=== PATIENT | female | born 1975 | race Caucasian/White ===

== ENCOUNTER → 2024-05-13 | Outpatient (CLI) | payer BC ==
--- NOTE | 2024-05-19 17:15 | CT ---
EXAMINATION TYPE: CT brain wo con DATE OF EXAM: 05/13/2024 5:34 PM COMPARISON: None. CLINICAL INDICATION: Female, 49 years old with history of R42 DIZZINESS/GIDDYNESS [id number] MGRN W/O AUR A, Dizziness and MENSAH's. TECHNIQUE: Brain: Axial CT images of the brain were obtained with coronal and sagittal reformats created and rev iewed. Contrast used: None. Oral contrast used: None. CT DLP: 1031.0 mGycm, Automated exposure control for dose reduction was used. FINDINGS: Brain: Extra-axial spaces: No abnormal extra-axial fluid collections. Ventricular system: Within normal limits Cerebral parenchyma: No acute intraparenchymal hemorrhage or mass effect. The menjivar-white junction is well differentiated. Cerebellum: Unremarkable. Mass effect: No evidence of midline shift. Intracranial vasculature: unremarkable Soft tissues: Normal. Calvarium/osseous structures: No depressed skull fracture. Paranasal sinuses and mastoid air cells: Mild scattered paranasal sinus disease. Visualized orbits: Orbital contents are intact. IMPRESSION: No acute intracranial process. [facility], , 05/19/2024 5:13 PM
== END | disposition home or self-care (01) ==
LOC: RADCTMAIN 17:08
PROVIDERS: ATTEND Family Medicine
DX: R42 Dizziness and giddiness (principal); G43.001 Migraine without aura, not intractable, with status migrainosus
CPT/HCPCS: 70450

== ENCOUNTER → 2024-05-13 | Outpatient (CLI) | payer BC ==
--- NOTE | 2024-05-15 11:20 | MM ---
Reason for Exam: Screening (asymptomatic). Baseline mammogram. Patient History: Menarche at age 13. First Full-Term at age 22. Risk Values: Albertina 5 year model risk: 0.8%. NCI Lifetime model risk: 8.3%. Prior Study Comparison: Patient's first Mammogram. Tissue Density: The breasts are almost entirely fatty. Findings: Analyzed By CAD. Right breast: There is no suspicious group of microcalcifications or new suspicious mass. Left breast: There is no suspicious group of microcalcifications or new suspicious mass. Overall Assessment: Negative, BI-RAD 1 Management: Screening Mammogram of both breasts in [address] [facility] will attempt to contact patient to return for supplemental views and ultrasound if indicated. Patient should continue monthly self-breast exams. A clinical breast exam by your physician is recommended on an annual basis. This exam should not preclude additional follow-up of suspicious palpable abnormalities. Note on Albertina scores and lifetime risk: 1. A Albertina score greater than 3% is considered moderate risk. If this is the case, consider specialist referral to assess eligibility for a risk reducing agent. 2. If overall lifetime risk for the development of breast cancer is 20% or higher, the patient may qualify for future screening with alternating mammogram and breast MRI. [facility], , 05/15/2024 11:17 AM. Electronically signed and approved by: Alexx Tolliver DO
== END | disposition home or self-care (01) ==
LOC: RADMAMWWP 16:43
PROVIDERS: ATTEND Family Medicine
DX: Z12.31 Encounter for screening mammogram for malignant neoplasm of breast (principal); R92.313 Mammographic fatty tissue density, bilateral breasts
CPT/HCPCS: 77067

== ENCOUNTER 2024-05-19 15:27 | Inpatient (IN) | payer BC ==
[2024-05-19 15:35] LABS: Glucose,Whole Blood 125 mg/dL (70-110)
--- NOTE | 2024-05-19 15:39 | ED ---
Syncope HPI - General Chief Complaint: Syncope Stated Complaint: SEIZURES Time Seen by Provider: 05/19/24 15:37 Source: patient, family, RN notes reviewed, old records reviewed Mode of arrival: ambulatory Limitations: no limitations - History of Present Illness Initial Comments: This is a 49-year-old female with significant anxiety during history of present illness coming in with family members were concerned for her wellbeing, syncope versus seizure throughout the day today as well as been having undiagnosed headaches and syncopal events prior this past month has been unusual for this patient as she is normally healthy without complaint or issue and she has been having a more difficult month. No trauma no fevers no nausea no vomiting no diarrhea no other complaints MD Complaint: loss of consciousness, felt faint, collapsed, seizure -: hour(s) Prodromal Symptoms: headache, lightheaded -: second(s) Witnessed: yes - by bystander Injuries Sustained Associated with Event: None Current Symptoms: lightheaded History: seizure disorder, previous syncopal episode Context: at rest Treatments Prior to Arrival: none - Related Data Home Medications Medication Instructions Recorded Confirmed No Known Home Medications 05/19/24 05/19/24 Allergies Allergy/AdvReac Type Severity Reaction Status Date / Time No Known Allergies Allergy Verified 05/19/24 18:11 Review of Systems ROS Statement: Those systems with pertinent positive or pertinent negative responses have been documented in the HPI. ROS Other: All systems not noted in ROS Statement are negative. Past Medical History Past Medical History: No Reported History Past Surgical History: Section, Tubal Ligation Additional Past Surgical History / Comment(s): wisdom teeth Smoking Status: Never smoker Past Alcohol Use History: None Reported Past Drug Use History: None Reported General Exam Limitations: no limitations General appearance: alert, in no apparent distress Head exam: Present: atraumatic, normocephalic, normal inspection Eye exam: Present: normal appearance, PERRL, EOMI. Absent: scleral icterus, co njunctival injection, periorbital swelling ENT exam: Present: normal exam, mucous membranes moist Neck exam: Present: normal inspection. Absent: tenderness, meningismus, lymphadenopathy Respiratory exam: Present: normal lung sounds bilaterally. Absent: respiratory distress, wheezes, rales, rhonchi, stridor Cardiovascular Exam: Present: regular rate, normal rhythm, normal heart sounds. Absent: systolic murmur, diastolic murmur, rubs, gallop, clicks GI/Abdominal exam: Present: soft, normal bowel sounds. Absent: distended, tenderness, guarding, rebound, rigid Extremities exam: Present: normal inspection, full ROM, normal capillary refill. Absent: tenderness, pedal edema, joint swelling, calf tenderness Back exam: Present: normal inspection Neurological exam: Present: alert, oriented X3, CN II-XII intact Psychiatric exam: Present: normal affect, normal mood Skin exam: Present: warm, dry, intact, normal color. Absent: rash Course Vital Signs 05/19/24 05/19/24 05/19/24 15:29 16:21 18:05 Temperature 97.4 F L 98.4 F Pulse Rate 82 85 92 Respiratory 20 16 22 Rate Blood Pressure 140/83 131/87 135/91 O2 Sat by Pulse 96 96 99 Oximetry 05/19/24 20:43 Temperature Pulse Rate 87 Respiratory 18 Rate Blood Pressure 128/84 O2 Sat by Pulse 98 Oximetry - Reevaluation(s) Reevaluation #1: 05/19/24 16:24 Medical records reviewed Reevaluation #2: 05/19/24 18:14 Patient has recurrent syncopal event here in the ER while ambulating to the bathroom Reevaluation #3: 05/19/24 18:14 Patient informed of results questions answered Reevaluation #4: Was pt. sent in by a medical professional or institution (, PA, STRATEGIC CONSULTANT, urgent care, hospital, or fdc...) When possible be specific @ -no Did you speak to anyone other than the patient for history (EMS, parent, family, police, friend...)? What history was obtained from this source @ -no Did you review nursing and triage notes (agree or disagree)? Why? @ -agree Are old charts reviewed (outside hosp., previous admission, EMS record, old EKG, old radiological studies, urgent care reports/EKG's, fdc records)? Report findings @ -yes Differential Diagnosis (chest pain, altered mental status, abdominal pain women, abdominal pain men, vaginal bleeding, weakness, fever, dyspnea, syncope, headache, dizziness, GI bleed, back pain, seizure, CVA, palpatations, mental health, musculoskeletal)? @ -prior EKG interpreted by me (3pts min.). @ -yes X-rays interpreted by me (1pt min.). @ -no CT interpreted by me (1pt min.). @ -yes negative for acute disease U/S interpreted by me (1pt. min.). @ -no What testing was considered but not performed or refused? (CT, X-rays, U/S, labs)? Why? @ -none What meds were considered but not given or refused? Why? @ -none Did you discuss the management of the patient with other professionals (professionals i.e. DrNaa, PA, STRATEGIC CONSULTANT, lab, RT, psych nurse, drug abuse social worker, active directory systems administrator, teacher, signals officer, case investigator)? Give summary @ -no Was smoking cessation discussed for >3mins.? @ -no Was critical care preformed (if so, how long)? @ -no Were there social determinants of health that impacted care today? How? (Homelessness, low income, unemployed, alcoholism, drug addiction, transportation, low edu. Level, literacy, decrease access to med. care, long term, rehab)? @ -none Was there de-escalation of care discussed even if they declined (Discuss DNR or withdrawal of care, Hospice)? DNR status @ -no What co-morbidities impacted this encounter? (DM, HTN, Smoking, COPD, CAD, Cancer, CVA, ARF, Chemo, Hep., AIDS, mental health diagnosis, sleep apnea, morbid obesity)? @ -none Was patient admitted / discharged? Hospital course, mention meds given and route, prescriptions, significant lab abnormalities, going to OR and other pertinent info. @ - 49 female for syncope versus seizure. Patient believes she is having seizures but had multiple syncopal events at home and was well as in the past month. Patient has syncopal event here in the ER and will admit for further evaluation Discharge Undiagnosed new problem with uncertain prognosis? @ -no Drug Therapy requiring intensive monitoring for toxicity (Heparin, Nitro, Insulin, Cardizem)? @ -no Were any procedures done? @ -no Diagnosis/symptom? @ -Syncope versus seizure Acute, or Chronic, or Acute on Chronic? @ -Acute Uncomplicated (without systemic symptoms) or Complicated (systemic symptoms)? @ -Complicated Side effects of treatment? @ -no Exacerbation, Progression, or Severe Exacerbation? @ -exacerbation Poses a threat to life or bodily function? How? (Chest pain, USA, DE, pneumonia, PE, COPD, DKA, ARF, appy, cholecystitis, CVA, Diverticulitis, Homicidal, Suicidal, threat to staff... and all critical care pts) @ -yes syncope versus seizure Reevaluation #5: Differential Seizure: Recurrent seizure disorder, febrile seizure, alcohol withdrawal, stimulants, meningitis, encephalitis, intercranial hemorrhage, intracranial tumor, stroke, eclampsia, thyrotoxicosis, hypocalcemia, hyponatremia, hypernatremia, hypomagnesemia, psychogenic, this is not meant to be an all-inclusive list. Differential Syncope: Valvular disease, hypertrophic cardiomyopathy, pulmonary embolism, tamponade, tachycardia, bradycardia, DE, hypovolemia, hemorrhage, dissection, anemia, intracranial hemorrhage, seizure, hypoglycemia, carbon monoxide poisoning, this is not meant to be an all-inclusive list. Differential Headache: Migraine, tension, cluster, carbon monoxide, central venous thrombosis, pension karma temporal arteritis, acute closure glaucoma, intercranial hemorrhage, mastoiditis, sinusitis, head injury, this is not meant to be an all-inclusive list. - Consultations Consultation #1: Was found to admit this patient EKG Findings - EKG Comments: EKG Findings:: EKG is A-fib 76 QRS 143 QTc 449 - EKG Results: EKG: interpreted by PHONG Medical Decision Making - Medical Decision Making 49 female for syncope versus seizure. Patient believes she is having seizures but had multiple syncopal events at home and was well as in the past month. Patient has syncopal event here in the ER and will admit for further evaluation - Lab Data Result diagrams: 05/20/24 09:06 05/21/24 12:53 Lab Results 05/19/24 05/19/24 05/19/24 Range/Units 15:34 15:48 15:48 WBC 8.4 (3.8-10.6) k/uL RBC 4.56 (3.80-5.40) m/uL Hgb 14.1 (11.4-16.0) gm/dL Hct 42.7 (34.0-46.0) % MCV 93.7 (80.0-100.0) fL MCH 31.0 (25.0-35.0) pg MCHC 33.1 (31.0-37.0) g/dL RDW 12.3 (11.5-15.5) % Plt Count 254 (150-450) k/uL MPV 8.8 Neutrophils % 61 % Lymphocytes % 29 % Monocytes % 5 % Eosinophils % 2 % Basophils % 0 % Neutrophils # 5.1 (1.3-7.7) k/uL Lymphocytes # 2.5 (1.0-4.8) k/uL Monocytes # 0.5 (0-1.0) k/uL Eosinophils # 0.2 (0-0.7) k/uL Basophils # 0.0 (0-0.2) k/uL PT 10.0 (10.0-12.5) sec INR 0.9 (<1.2) APTT 24.9 (22.0-30.0) sec D-Dimer 0.21 (<0.60) mg/L FEU Sodium (137-145) mmol/L Potassium (3.5-5.1) mmol/L Chloride (98-107) mmol/L Carbon Dioxide (22-30) mmol/L Anion Gap mmol/L BUN (7-17) mg/dL Creatinine (0.52-1.04) mg/dL Est GFR (CKD-EPI)AfAm (>60 ml/min/1.73 sqM) Est GFR (CKD-EPI)NonAf (>60 ml/min/1.73 sqM) Glucose (74-99) mg/dL POC Glucose (mg/dL) 125 H (70-110) mg/dL POC Glu Assistant Chief Train Dispatcher ID Mack Juan Calcium (8.4-10.2) mg/dL Magnesium (1.6-2.3) mg/dL Total Bilirubin (0.2-1.3) mg/dL AST (14-36) U/L ALT (4-34) U/L Alkaline Phosphatase (38-126) U/L Troponin I (0.000-0.034) ng/mL NT-Pro-B Natriuret Pep pg/mL Total Protein (6.3-8.2) g/dL Albumin (3.5-5.0) g/dL TSH (0.465-4.680) mIU/L Cortisol (3.1-22.4) UG/DL Urine Color Urine Appearance (Clear) Urine pH (5.0-8.0) Ur Specific [place] (1.001-1.035) Urine Protein (Negative) Urine Glucose (UA) (Negative) Urine Ketones (Negative) Urine Blood (Negative) Urine Nitrite (Negative) Urine Bilirubin (Negative) Urine Urobilinogen (<2.0) mg/dL Ur Leukocyte Esterase (Negative) Urine RBC (0-5) /hpf Urine WBC (0-5) /hpf Ur Squamous Epith Cells (0-4) /hpf Salicylates mg/dL Urine Opiates Screen (NotDetected) Ur Oxycodone Screen (NotDetected) Urine Methadone Screen (NotDetected) Acetaminophen ug/mL Ur Barbiturates Screen (NotDetected) U Tricyclic Antidepress (NotDetected) Ur Phencyclidine Scrn (NotDetected) Ur Amphetamines Screen (NotDetected) U Methamphetamines Scrn (NotDetected) U Benzodiazepines Scrn (NotDetected) Urine Cocaine Screen (NotDetected) U Marijuana (THC) Screen (NotDetected) 05/19/24 05/19/24 05/19/24 Range/Units 15:48 15:48 15:48 WBC (3.8-10.6) k/uL RBC (3.80-5.40) m/uL Hgb (11.4-16.0) gm/dL Hct (34.0-46.0) % MCV (80.0-100.0) fL MCH (25.0-35.0) pg MCHC (31.0-37.0) g/dL RDW (11.5-15.5) % Plt Count (150-450) k/uL MPV Neutrophils % % Lymphocytes % % Monocytes % % Eosinophils % % Basophils % % Neutrophils # (1.3-7.7) k/uL Lymphocytes # (1.0-4.8) k/uL Monocytes # (0-1.0) k/uL Eosinophils # (0-0.7) k/uL Basophils # (0-0.2) k/uL PT (10.0-12.5) sec INR (<1.2) APTT (22.0-30.0) sec D-Dimer (<0.60) mg/L FEU Sodium 137 (137-145) mmol/L Potassium 4.5 (3.5-5.1) mmol/L Chloride 104 (98-107) mmol/L Carbon Dioxide 23 (22-30) mmol/L Anion Gap 10 mmol/L BUN 17 (7-17) mg/dL Creatinine 0.72 (0.52-1.04) mg/dL Est GFR (CKD-EPI)AfAm >90 (>60 ml/min/1.73 sqM) Est GFR (CKD-EPI)NonAf >90 (>60 ml/min/1.73 sqM) Glucose 139 H (74-99) mg/dL POC Glucose (mg/dL) (70-110) mg/dL POC Glu Assistant Chief Train Dispatcher ID Calcium 9.9 (8.4-10.2) mg/dL Magnesium 1.9 (1.6-2.3) mg/dL Total Bilirubin 0.9 (0.2-1.3) mg/dL AST 27 (14-36) U/L ALT 20 (4-34) U/L Alkaline Phosphatase 60 (38-126) U/L Troponin I <0.012 (0.000-0.034) ng/mL NT-Pro-B Natriuret Pep 56 pg/mL Total Protein 8.0 (6.3-8.2) g/dL Albumin 4.6 (3.5-5.0) g/dL TSH 1.990 (0.465-4.680) mIU/L Cortisol 29.4 H (3.1-22.4) UG/DL Urine Color Urine Appearance (Clear) Urine pH (5.0-8.0) Ur Specific [place] (1.001-1.035) Urine Protein (Negative) Urine Glucose (UA) (Negative) Urine Ketones (Negative) Urine Blood (Negative) Urine Nitrite (Negative) Urine Bilirubin (Negative) Urine Urobilinogen (<2.0) mg/dL Ur Leukocyte Esterase (Negative) Urine RBC (0-5) /hpf Urine WBC (0-5) /hpf Ur Squamous Epith Cells (0-4) /hpf Salicylates <1.0 mg/dL Urine Opiates Screen (NotDetected) Ur Oxycodone Screen (NotDetected) Urine Methadone Screen (NotDetected) Acetaminophen <10.0 ug/mL Ur Barbiturates Screen (NotDetected) U Tricyclic Antidepress (NotDetected) Ur Phencyclidine Scrn (NotDetected) Ur Amphetamines Screen (NotDetected) U Methamphetamines Scrn (NotDetected) U Benzodiazepines Scrn (NotDetected) Urine Cocaine Screen (NotDetected) U Marijuana (THC) Screen (NotDetected) 05/19/24 Range/Units 16:28 WBC (3.8-10.6) k/uL RBC (3.80-5.40) m/uL Hgb (11.4-16.0) gm/dL Hct (34.0-46.0) % MCV (80.0-100.0) fL MCH (25.0-35.0) pg MCHC (31.0-37.0) g/dL RDW (11.5-15.5) % Plt Count (150-450) k/uL MPV Neutrophils % % Lymphocytes % % Monocytes % % Eosinophils % % Basophils % % Neutrophils # (1.3-7.7) k/uL Lymphocytes # (1.0-4.8) k/uL Monocytes # (0-1.0) k/uL Eosinophils # (0-0.7) k/uL Basophils # (0-0.2) k/uL PT (10.0-12.5) sec INR (<1.2) APTT (22.0-30.0) sec D-Dimer (<0.60) mg/L FEU Sodium (137-145) mmol/L Potassium (3.5-5.1) mmol/L Chloride (98-107) mmol/L Carbon Dioxide (22-30) mmol/L Anion Gap mmol/L BUN (7-17) mg/dL Creatinine (0.52-1.04) mg/dL Est GFR (CKD-EPI)AfAm (>60 ml/min/1.73 sqM) Est GFR (CKD-EPI)NonAf (>60 ml/min/1.73 sqM) Glucose (74-99) mg/dL POC Glucose (mg/dL) (70-110) mg/dL POC Glu Assistant Chief Train Dispatcher ID Calcium (8.4-10.2) mg/dL Magnesium (1.6-2.3) mg/dL Total Bilirubin (0.2-1.3) mg/dL AST (14-36) U/L ALT (4-34) U/L Alkaline Phosphatase (38-126) U/L Troponin I (0.000-0.034) ng/mL NT-Pro-B Natriuret Pep pg/mL Total Protein (6.3-8.2) g/dL Albumin (3.5-5.0) g/dL TSH (0.465-4.680) mIU/L Cortisol (3.1-22.4) UG/DL Urine Color Colorless Urine Appearance Clear (Clear) Urine pH 7.0 (5.0-8.0) Ur Specific [place] 1.006 (1.001-1.035) Urine Protein Negative (Negative) Urine Glucose (UA) Negative (Negative) Urine Ketones Negative (Negative) Urine Blood Negative (Negative) Urine Nitrite Negative (Negative) Urine Bilirubin Negative (Negative) Urine Urobilinogen <2.0 (<2.0) mg/dL Ur Leukocyte Esterase Moderate H (Negative) Urine RBC 2 (0-5) /hpf Urine WBC 14 H (0-5) /hpf Ur Squamous Epith Cells 3 (0-4) /hpf Salicylates mg/dL Urine Opiates Screen Not Detected (NotDetected) Ur Oxycodone Screen Not Detected (NotDetected) Urine Methadone Screen Not Detected (NotDetected) Acetaminophen ug/mL Ur Barbiturates Screen Not Detected (NotDetected) U Tricyclic Antidepress Not Detected (NotDetected) Ur Phencyclidine Scrn Not Detected (NotDetected) Ur Amphetamines Screen Not Detected (NotDetected) U Methamphetamines Scrn Not Detected (NotDetected) U Benzodiazepines Scrn Not Detected (NotDetected) Urine Cocaine Screen Not Detected (NotDetected) U Marijuana (THC) Screen Not Detected (NotDetected) - EKG Data -: EKG Interpreted by Me - Radiology Data Radiology results: report reviewed (CT brain CT canal negative for acute disease), image reviewed Disposition Clinical Impression: Fainting spell, Syncope, Seizure, Headache Disposition: ADMITTED IP TO THIS [facility] Condition: Stable Is patient prescribed a controlled substance at d/c from ED?: No Time of Disposition: 18:00
[2024-05-19] MEDS: SODIUM CHLORIDE 0.9% 1,000 ML IV STA (15:55)
[2024-05-19 16:04] LABS: Basophils % (A) 0 %; Eosinophils # (A) 0.2 k/uL (0-0.7); Eosinophils % (A) 2 %; HCT 42.7 % (34.0-46.0); HGB 14.1 gm/dL (11.4-16.0); Lymphocytes # (A) 2.5 k/uL (1.0-4.8); Lymphocytes % (A) 29 %; MCHC 33.1 g/dL (31.0-37.0); MCV 93.7 fL (80.0-100.0); Mean Platelet Volume 8.8; Monocytes # (A) 0.5 k/uL (0-1.0); Monocytes % (A) 5 %; Neutrophils # (A) 5.1 k/uL (1.3-7.7); Neutrophils % (A) 61 %; Platelet Count 254 k/uL (150-450); RBC 4.56 m/uL (3.80-5.40); RDW 12.3 % (11.5-15.5); WBC 8.4 k/uL (3.8-10.6)
[2024-05-19 16:15] LABS: ALT 20 U/L (4-34); Acetaminophen <10.0 ug/mL; African American GFR (CKD) >90 (>60 ml/min/1.73 sqM); Albumin 4.6 g/dL (3.5-5.0); Anion Gap 10 mmol/L; Blood Urea Nitrogen 17 mg/dL (7-17); Calcium 9.9 mg/dL (8.4-10.2); Carbon Dioxide 23 mmol/L (22-30); Chloride 104 mmol/L (98-107); Glucose 139 mg/dL (74-99); Non-African American GFR(CKD) >90 (>60 ml/min/1.73 sqM); Salicylate <1.0 mg/dL; Sodium 137 mmol/L (137-145); Total Bilirubin 0.9 mg/dL (0.2-1.3)
[2024-05-19 16:16] LABS: AST 27 U/L (14-36); Alkaline Phosphatase 60 U/L (38-126); Magnesium 1.9 mg/dL (1.6-2.3); Potassium 4.5 mmol/L (3.5-5.1)
[2024-05-19 16:20] LABS: INR 0.9 (<1.2); Partial Thromboplastin Time 24.9 sec (22.0-30.0)
--- NOTE | 2024-05-19 16:51 | CT ---
EXAMINATION TYPE: CT brain wo con DATE OF EXAM: 05/19/2024 4:44 PM COMPARISON: Previous CT study 05/13/2024. CLINICAL INDICATION: Female, 49 years old with history of syncope, Pt c/o seizures. States head tremb ling, heat in ear, and head shaking. Remembers episode happening. Denies fall/injury. States she was bending down to get water from fridge when it happened. States it starts with inner ear heating up an d heart palpitations which she reports is happening in triage. States she has passed out before from this. TECHNIQUE: Brain: Axial CT images of the brain were obtained with coronal and sagittal reformats created and rev iewed. Contrast used: None. Oral contrast used: None. CT DLP: Combined DLP of 1719.8 mGycm, Automated exposure control for dose reduction was used. FINDINGS: Brain: Extra-axial spaces: No abnormal extra-axial fluid collections. Ventricular system: Within normal limits Cerebral parenchyma: No acute intraparenchymal hemorrhage or mass effect. The menjivar-white junction is well differentiated. Cerebellum: Unremarkable. Mass effect: No evidence of midline shift. Intracranial vasculature: unremarkable Soft tissues: Normal. Calvarium/osseous structures: No depressed skull fracture. Paranasal sinuses and mastoid air cells: Mild scattered paranasal sinus disease. Visualized orbits: Orbital contents are intact. IMPRESSION: No acute intracranial process. [facility], , 05/19/2024 4:49 PM
[2024-05-19 17:00] LABS: Appearance,Urine Clear (Clear); Bilirubin,Urine Negative (Negative); Blood,Urine Negative (Negative); Color,Urine Colorless; Glucose,Urine (UA) Negative (Negative); Ketones,Urine Negative (Negative); Leukocyte Esterase,Urine Moderate (Negative); Nitrite,Urine Negative (Negative); Protein,Urine Negative (Negative); RBC,Urine 2 /hpf (0-5); Specific Gravity,Urine 1.006 (1.001-1.035); Squamous Epithelial Cell,Urine 3 /hpf (0-4); Urobilinogen,Urine <2.0 mg/dL (<2.0); WBC,Urine 14 /hpf (0-5)
[2024-05-19 17:01] LABS: Amphetamine Screen,Urine Not Detected (NotDetected); Barbiturate Screen,Urine Not Detected (NotDetected); Benzodiazepines Screen,Urine Not Detected (NotDetected); Cocaine Screen,Urine Not Detected (NotDetected); Methadone Screen, Urine Not Detected (NotDetected); Opiate Screen,Urine Not Detected (NotDetected); Oxycodone Screen, Urine Not Detected (NotDetected); Phencyclidine Screen,Urine Not Detected (NotDetected); Tricyclic Antidepressant,Urine Not Detected (NotDetected); Urn Cannabinoid Scrn Not Detected (NotDetected)
--- NOTE | 2024-05-19 17:13 | CT ---
EXAMINATION TYPE: CT angio head neck DATE OF EXAM: 05/19/2024 5:02 PM COMPARISON: Previous CT study 05/13/2024. CLINICAL INDICATION: Female, 49 years old with history of ziegler; PHH, Pt c/o seizures. States head tremb ling, heat in ear, and head shaking. Remembers episode happening. Denies fall/injury. States she was bending down to get water from fridge when it happened. States it starts with inner ear heating up an d heart palpitations which she reports is happening in triage. States she has passed out before from this. TECHNIQUE: Axially acquired helical CT angiogram of the head and neck was obtained with contrast. Axi al images are supplemented with 3D reconstructions and MIP images which were post-processed at an in dependent workstation. NASCET criteria used. Contrast used:65 ml mL of Isovue 370 with IV Contrast, Oral contrast used: None. CT DLP: Combined DLP of 1719.8 mGycm, Automated exposure control for dose reduction was used. FINDINGS: CTA HEAD: No evidence of acute intracranial hemorrhage, mass effect, or midline shift. The ventricles, sulci, a nd cisterns are unremarkable. Vertebral arteries: The vertebral arteries are patent. Vertebral artery dominance: Codominant Basilar artery: The basilar artery is intact. The basilar artery bifurcation is normal. Internal Carotid arteries: The cervical, petrous, cavernous and supraclinoid segments are normal. STACIA: Patent with no evidence of aneurysm. ACOM: Present without evidence of aneurysm. MCA: Patent with no evidence of aneurysm. CREWMAN MAIN BATTLE TANK: Patent with no evidence of aneurysm. PCOM: Hypoplastic bilaterally. Dural sinuses: Patent. CTA NECK: Right Carotid System: The common carotid artery and external carotid artery are patent. The carotid bifurcation demonstrate s no evidence of hemodynamically significant stenosis. The remaining portions of the internal carotid artery demonstrate normal size without significant narrowing. Left Carotid System: The common carotid artery and external carotid artery are patent. The carotid bifurcation demonstrate s no evidence of hemodynamically significant stenosis. The remaining portions of the internal carotid artery demonstrate normal size without significant narrowing. Vertebral arteries are patent without evidence hemodynamically significant stenosis. There is a three-vessel aortic arch. The origins of the great vessels are patent. No evidence of hemo dynamically significant stenosis. Upper thorax: IMPRESSION: 1. No evidence of dissection of the cervical internal carotid arteries or vertebral arteries. 2. No any evidence of significant stenosis at the carotid bifurcations. 3. No evidence of intracranial high-grade stenosis or intracranial aneurysm. [facility], , 05/19/2024 5:10 PM
[2024-05-19] MEDS ORDERED: ONDANSETRON 4 MG/2 ML VIAL IVP PRN (18:12)
[2024-05-19] MEDS ORDERED: MORPHINE SULFATE 4 MG/ML SYRINGE IV PRN (18:12)
[2024-05-19] MEDS ORDERED: NALOXONE 0.4 MG/ML 1 ML VIAL IV PRN (18:12)
[2024-05-19] MEDS: SODIUM CHLORIDE 0.9% 1,000 ML IV SCH (18:18)
[2024-05-19 21:36] LABS: NT-Pro-B-Type Natriuretic Pept 56 pg/mL
--- NOTE | 2024-05-19 22:18 | P.HPIM ---
History of Present Illness H&P Date: 05/19/24 Chief Complaint: syncope History of present illness; 49-year-old female with no significant PMH presents emergency department due to family members being concerned for her wellbeing. She states that dating back to January he had noted having episodes where she feels as though she passes out. She states these episodes last about 1 minute, the begin with her feeling warmth in and around her right ear which then extends to her left ear and sometimes throughout her torso. She notes that she has passed out on multiple occasions as a result of these episodes. She states that following her episodes of passing out she feels weakness that sometimes last the duration of the day. She states that over the past week this has become worse, and more frequent, stating that today she has had 3+ episodes thus far, and another episode in the ED. She notes that there is some association between when she gets up from a seated position, when she moves her head in certain directions (in particular towards the right), has her chin pulled down to her chest. While these do not always reproduce these episodes, she has noticed an association between them. She endorses some dizziness preceding these episodes and some palpitations, however denies any nausea or vomiting. Her , at the bedside, provides additional detail, noting that they have noticed her having episodes of bradycardia (HR in the 40s) and her heart rate during/right after these episodes being upwards of 170. Additionally, she notes that her period stopped occurring in January, and she has not had one since. At this time she notes that having increased anxiety secondary to these episodes, however has no acute complaints. Imaging: -CT brain showed no acute intracranial process -CT angiography of the head and neck showed no evidence of dissection of the cervical internal carotid arteries or vertebral arteries; no evidence of significant stenosis at the carotid bifurcation; no evidence of intracranial high-grade stenosis or intracranial aneurysm -EKG done in the ER showed atrial fibrillation with a heart rate of 76; QTc 449 Vitals: -Blood pressure 135/91, heart rate 92, respiratory rate 22, SpO2 99% on room air -Orthostatic pressures pending Patient admitted to internal medicine service REVIEW OF SYSTEMS: CONSTITUTIONAL: No fever, no malaise, no fatigue. HEENT: No recent visual problems or hearing problems. Denied any sore throat. CARDIOVASCULAR: No chest pain, orthopnea, PND, no palpitations, no syncope. PULMONARY: No shortness of breath, no cough, no hemoptysis. GASTROINTESTINAL: No diarrhea, no nausea, no vomiting, no abdominal pain. NEUROLOGICAL: No headaches, no weakness, no numbness. HEMATOLOGICAL: Denies any bleeding or petechiae. GENITOURINARY: Denies any burning micturition, frequency, or urgency. MUSCULOSKELETAL/RHEUMATOLOGICAL: Denies any joint pain, swelling, or any muscle pain. ENDOCRINE: Denies any polyuria or polydipsia. The rest of the 14-point review of systems is negative. PHYSICAL EXAMINATION: GENERAL: The patient is alert and oriented x3, not in any acute distress. Well developed, well nourished. HEENT: No scleral icterus. No conjunctival pallor. Normocephalic, atraumatic. CARDIOVASCULAR: S1 and S2 present. No murmurs, rubs, or gallops. PULMONARY: Chest is clear to auscultation, no wheezing or crackles. ABDOMEN: Soft, nontender, nondistended, normoactive bowel sounds. No palpable organomegaly. MUSCULOSKELETAL: No joint swelling or deformity. EXTREMITIES: No cyanosis, clubbing, or pedal edema. NEUROLOGICAL: Gross neurological examination did not reveal any focal deficits. 5/5 strength in bilateral upper and lower extremities. CN II-XII grossly intact SKIN: No rashes. Assessment and plan 41-year-old female without significant past medical history presents emergency room for further evaluation following a month-long history of apparent syncopal, or seizure-like, episodes. Discussed with the ED and patient is admitted to the internal medicine service for further evaluation. #Syncope vs seizure -CT brain showed no acute intracranial process -CT angiography of the head and neck showed no evidence of dissection of the cervical internal carotid arteries or vertebral arteries; no evidence of significant stenosis at the carotid bifurcation; no evidence of intracranial high-grade stenosis or intracranial aneurysm -EKG done in the ER showed atrial fibrillation with a heart rate of 76; QTc 449 -Second EKG currently pending -Patient maintained on normal saline 75 cc/h -Cardiology consulted for possible syncopal episode -Neurology consulted for possible seizure-like activity -Orthostatic blood pressures ordered -Echocardiogram pending -Cardiac monitoring -Supplemental oxygen as needed -EEG pending for tomorrow morning (05/20) -Trend troponins; <0.012 -> <0.012 -proBNP pending -TSH wnl 1.9 -Cortisol level pending -Urinalysis noncontributory; urine toxicology noncontributory GI prohylaxis: Not indicated DVT prophylaxis: [place] Risk Score: 1 point (low risk for VTE, prophylaxis not indicated), mechanical DVT PPX with SCDs Dictation was produced using [employer] dictation software. please excuse any grammatical, word or spelling errors. Past Medical History Past Medical History: No Reported History Past Surgical History: Section, Tubal Ligation Additional Past Surgical History / Comment(s): wisdom teeth Smoking Status: Never smoker Past Alcohol Use History: None Reported Past Drug Use History: None Reported Medications and Allergies Home Medications Medication Instructions Recorded Confirmed Type No Known Home Medications 05/19/24 05/19/24 History Allergies Allergy/AdvReac Type Severity Reaction Status Date / Time No Known Allergies Allergy Verified 05/19/24 18:11 Physical Exam Vitals: Vital Signs Temp Pulse Resp BP Pulse Ox 05/19/24 20:43 87 18 128/84 98 05/19/24 18:05 98.4 F 92 22 135/91 99 05/19/24 16:21 85 16 131/87 96 05/19/24 15:29 97.4 F L 82 20 140/83 96 Intake and Output 05/19/24 05/19/24 05/19/24 06:59 14:59 22:59 Other: Weight 90.718 kg Results CBC & Chem 7: 05/19/24 15:48 05/19/24 15:48 Labs: Abnormal Lab Results - Last 24 Hours (Table) 05/19/24 05/19/24 05/19/24 Range/Units 15:34 15:48 16:28 Glucose 139 H (74-99) mg/dL POC Glucose (mg/dL) 125 H (70-110) mg/dL Ur Leukocyte Esterase Moderate H (Negative) Urine WBC 14 H (0-5) /hpf Assessment and Plan Assessment: I have seen and evaluated the patient today. I Discussed the case with the res ident and agree with the resident's findings I edited the assessment and plan as necessary as documented in the resident's note.
--- NOTE | 2024-05-20 08:56 | P.CNNES ---
History of Present Illness Consult date: 05/20/24 Reason for Consult: Syncope vs. seizure disorder Chief complaint: "I have been passing out and feeling dizzy" History of Present Illness: Ms. Matt Bennett is a 49-year-old right-handed female with past medical history significant only for syncopal events versus seizures. She was admitted to [facility] on May 19 complaining of several episodes of lightheadedness as well as some loss of consciousness. She does not think she is unconscious for a long time, and denies tongue biting or bowel bladder incontinence with these episodes. She received an electrocardiogram in the emergency room showing atrial fibrillation with rate of 76 bpm. However she does note that symptoms tend to occur when she is arising from bending over. She also notes episodes which may occur when she turns her head to the right, but denies episodes occurring when she raises her arms above her head. She did undergo a CT scan of the brain as well as CT angiogram which were both negative. She was tachycardic in the emergency room to 170 and notes that she has been diagnosed with some low blood sugars with these episodes in the past but denies diabetes. Neurology was consulted for further management recommendations, and cardiology has been consulted as well. Review of Systems hot "flashes," no distict heat/cold intolerance. Eyes: bilateral blurred vision (during episodes) Ears, nose, mouth and throat: Reports as per HPI Cardiovascular: Reports as per HPI, Reports palpitations Respiratory: Reports as per HPI Gastrointestinal: Reports as per HPI Genitourinary: Reports as per HPI Menstruation: Reports postmenopausal Musculoskeletal: Reports as per HPI Integumentary: Reports as per HPI Neurological: Reports as per HPI Endocrine: Reports flushing Hematologic/Lymphatic: Reports as per HPI Allergic/Immunologic: Reports as per HPI Past Medical History Past Medical History: No Reported History (hx. only of multiple syncopal episodes vs. seizures.) History of Any Multi-Drug Resistant Organisms: None Reported Past Surgical History: Section, Tubal Ligation Additional Past Surgical History / Comment(s): wisdom teeth Past Anesthesia/Blood Transfusion Reactions: No Reported Reaction Smoking Status: Never smoker Past Alcohol Use History: None Reported Past Drug Use History: None Reported Medications and Allergies Home Medications Medication Instructions Recorded Confirmed Type No Known Home Medications 05/19/24 05/19/24 History Allergies Allergy/AdvReac Type Severity Reaction Status Date / Time No Known Allergies Allergy Verified 05/19/24 18:11 Physical Examination - Vital Signs Vital Signs: Vital Signs Temp Pulse Pulse Pulse Resp BP BP 05/20/24 07:00 98.2 F 72 16 05/20/24 02:00 97.7 F 75 17 107/73 05/19/24 20:43 87 18 128/84 05/19/24 18:05 98.4 F 92 22 135/91 05/19/24 16:21 85 16 131/87 05/19/24 15:29 97.4 F L 82 20 140/83 BP Pulse Ox 05/20/24 07:00 109/74 98 05/20/24 02:00 97 05/19/24 20:43 98 05/19/24 18:05 99 05/19/24 16:21 96 05/19/24 15:29 96 Intake and Output 05/19/24 05/20/24 05/20/24 22:59 06:59 14:59 Other: # Voids 1 2 Weight 90.718 kg - Constitutional General appearance: average body habitus - EENT EENT: PERRL - Respiratory Respiratory: chest non-tender, lungs clear - Cardiovascular Cardiovascular: regular rate, no murmurs Extremities: no peripheral edema bilaterally - Gastrointestinal Gastrointestinal: normoactive bowel sounds, non-tender - Integumentary Integumentary: normal - Neurologic Cranial nerve examination: PERRL, EOMI, V1/V2/V3 grossly intact, face symmetric Speech examination: intact Sensorimotor examination: intact Detailed motor examination: full strength in all major muscle groups Detailed sensory examination: intact Reflex and gait examination: intact Results CT Head and CYT angio head/neck 05/19/24 negative. - Laboratory Findings CBC and BMP: 05/19/24 15:48 05/19/24 15:48 Abnormal Lab Findings: Abnormal Labs 05/19/24 05/19/24 05/19/24 15:34 15:48 15:48 Glucose 139 H POC Glucose (mg/dL) 125 H Cortisol 29.4 H Ur Leukocyte Esterase Urine WBC 05/19/24 16:28 Glucose POC Glucose (mg/dL) Cortisol Ur Leukocyte Esterase Moderate H Urine WBC 14 H Assessment and Plan Assessment: Ms. Matt Bennett is a 49-year-old right-handed female with history of syncopal episodes versus seizures. She denies history of seizures infant or child, and her episodes do not appear to last very long, though she does report some mild shaking during episodes. She has lost consciousness with these but is seen appears to be short-lived. There are palpitations as well as heat flush that she feels prior to these episodes and they may be precipitated by arising from a bending position. I suspect these are this is likely syncope in nature, possibly orthostatic versus vasovagal. However cardiac arrhythmia should be considered as she was noted to be in atrial fibrillation. Cardiology has been consulted as well. Plan: 1. I have ordered an electroencephalogram to be performed on a routine basis to look for any evidence of seizures. 2. If electroencephalogram indicates results consistent with seizure disorder, I will prescribe antiepileptic medication. 3. I have also ordered orthostatic vital signs with blood pressure and heart rate to be checked every 6 hours for possible orthostatic hypotension. 4. Cardiology has been consulted as well and will assist with management of possible orthostasis versus arrhythmia. 5. Neurology will continue to follow patient in house and make further recommendations as needed. Time with Patient: Less than 30
[2024-05-20 09:23] LABS: Basophils % (A) 0 %; Eosinophils # (A) 0.1 k/uL (0-0.7); Eosinophils % (A) 2 %; HCT 41.3 % (34.0-46.0); HGB 13.5 gm/dL (11.4-16.0); Lymphocytes # (A) 1.5 k/uL (1.0-4.8); Lymphocytes % (A) 21 %; MCH 31.1 pg (25.0-35.0); MCHC 32.8 g/dL (31.0-37.0); MCV 94.8 fL (80.0-100.0); Mean Platelet Volume 9.9; Monocytes # (A) 0.4 k/uL (0-1.0); Monocytes % (A) 6 %; Neutrophils # (A) 4.9 k/uL (1.3-7.7); Neutrophils % (A) 69 %; Platelet Count 225 k/uL (150-450); RBC 4.36 m/uL (3.80-5.40); RDW 12.9 % (11.5-15.5); WBC 7.1 k/uL (3.8-10.6)
[2024-05-20 09:33] LABS: African American GFR (CKD) >90 (>60 ml/min/1.73 sqM); Anion Gap 10 mmol/L; Blood Urea Nitrogen 11 mg/dL (7-17); Calcium 9.5 mg/dL (8.4-10.2); Carbon Dioxide 23 mmol/L (22-30); Chloride 108 mmol/L (98-107); Glucose 138 mg/dL (74-99); Non-African American GFR(CKD) >90 (>60 ml/min/1.73 sqM); Phosphorus 2.8 mg/dL (2.5-4.5); Sodium 141 mmol/L (137-145)
--- NOTE | 2024-05-20 09:52 | P.CRDCN ---
History of Present Illness Consult date: 05/20/24 Requesting physician: Lucila Walter Reason for Consult (text): Is a pleasant 49-year-old female patient with no significant medical history. P resented to the hospital after having a syncopal episode at home. She is apparently been getting these episodes since January. She states she feels her ear warming up and then becomes somewhat disoriented and has had a couple very brief syncopal episodes lasting only seconds. She has had no clear evidence of seizure-like activity and no loss of bowel or bladder control. She has no history of prior cardiac workup. She is a non-smoker, nondrinker and stopped drinking caffeine about 2 weeks ago. EKG on presentation showed sinus mechanism with first-degree AV block and left bundle branch block with occasional junctional beats. No prior EKG for comparison. Troponins have been negative x 3. Renal function is normal. Labs are essentially unremarkable except for glucose of 139 and cortisol 29.4. Neurology has also been consulted. Vital signs have been stable. There has been no evidence of significant arrhythmia on telemetry. Upon examination the patient is resting comfortably in bed with family at bedside. She is overall feeling well at this time. She denies any chest discomfort. She does have occasional palpitations following these episodes that she relates to anxiety. She feels somewhat short of breath during these episodes she again attributes to anxiety. She is relatively active and has been using her recumbent bike at home without any exertional chest discomfort or shortness of breath. She has no edema, orthopnea or PND. Past Medical History Past Medical History: No Reported History (hx. only of multiple syncopal epis odes vs. seizures.) History of Any Multi-Drug Resistant Organisms: None Reported Past Surgical History: Section, Tubal Ligation Additional Past Surgical History / Comment(s): wisdom teeth Past Anesthesia/Blood Transfusion Reactions: No Reported Reaction Smoking Status: Never smoker Past Alcohol Use History: None Reported Past Drug Use History: None Reported Medications and Allergies Home Medications Medication Instructions Recorded Confirmed Type No Known Home Medications 05/19/24 05/19/24 History Allergies Allergy/AdvReac Type Severity Reaction Status Date / Time No Known Allergies Allergy Verified 05/19/24 18:11 Physical Exam Vitals: Vital Signs Temp Pulse Pulse Pulse Resp BP BP 05/20/24 07:00 98.2 F 72 16 05/20/24 02:00 97.7 F 75 17 107/73 05/19/24 20:43 87 18 128/84 05/19/24 18:05 98.4 F 92 22 135/91 05/19/24 16:21 85 16 131/87 05/19/24 15:29 97.4 F L 82 20 140/83 BP Pulse Ox 05/20/24 07:00 109/74 98 05/20/24 02:00 97 05/19/24 20:43 98 05/19/24 18:05 99 05/19/24 16:21 96 05/19/24 15:29 96 Intake and Output 05/19/24 05/20/24 05/20/24 22:59 06:59 14:59 Other: # Voids 1 2 Weight 90.718 kg PHYSICAL EXAMINATION: This is a 49-year-old male in no apparent distress at the time of my examination. VITAL SIGNS: Reviewed. HEENT: Head is atraumatic, normocephalic. Pupils are equal, round. Sclerae anicteric. Conjunctivae are clear. Mucous membranes of the mouth are moist. Neck is supple. There is no elevated jugular venous pressure. No carotid bruit is heard. CHEST EXAMINATION: Clear to auscultation bilaterally. No wheezes rales or rhonchi. Respirations even and nonlabored. HEART EXAMINATION: Heart regular, positive S1 and S2. No S3. No S4. No clicks, rubs or murmurs. ABDOMEN: Soft, nontender. Bowel sounds are heard. No organomegaly noted. EXTREMITIES: 2+ peripheral pulses with no evidence of peripheral edema and no calf tenderness noted. NEUROLOGIC EXAMINATION: Patient is awake, alert and oriented x3. Results 05/20/24 09:06 05/19/24 15:48 Cardiac Enzymes 05/19/24 05/19/24 05/19/24 Range/Units 15:48 15:48 19:05 AST 27 (14-36) U/L Troponin I <0.012 <0.012 (0.000-0.034) ng/mL 05/19/24 Range/Units 23:56 AST (14-36) U/L Troponin I <0.012 (0.000-0.034) ng/mL Coagulation 05/19/24 Range/Units 15:48 PT 10.0 (10.0-12.5) sec APTT 24.9 (22.0-30.0) sec CBC 05/19/24 05/20/24 Range/Units 15:48 09:06 WBC 8.4 7.1 (3.8-10.6) k/uL RBC 4.56 4.36 (3.80-5.40) m/uL Hgb 14.1 13.5 (11.4-16.0) gm/dL Hct 42.7 41.3 (34.0-46.0) % Plt Count 254 225 (150-450) k/uL Comprehensive Metabolic Panel 05/19/24 Range/Units 15:48 Sodium 137 (137-145) mmol/L Potassium 4.5 (3.5-5.1) mmol/L Chloride 104 (98-107) mmol/L Carbon Dioxide 23 (22-30) mmol/L BUN 17 (7-17) mg/dL Creatinine 0.72 (0.52-1.04) mg/dL Glucose 139 H (74-99) mg/dL Calcium 9.9 (8.4-10.2) mg/dL AST 27 (14-36) U/L ALT 20 (4-34) U/L Alkaline Phosphatase 60 (38-126) U/L Total Protein 8.0 (6.3-8.2) g/dL Albumin 4.6 (3.5-5.0) g/dL Current Medications Generic Name Dose Route Start Last Admin Trade Name Freq PRN Reason Stop Dose Admin Sodium Chloride 1,000 mls @ 75 mls/hr 05/19/24 18:15 05/19/24 18:18 Saline 0.9% IV 75 mls/hr .[id number] CASSANDRA Administration Morphine Sulfate 4 mg 05/19/24 18:12 Morphine Sulfate 4 Mg/Ml Syringe IV Q4HR PRN Severe Pain (Scale 7 to 10) Naloxone HCl 0.2 mg 05/19/24 18:12 Naloxone 0.4 Mg/Ml 1 Ml Vial IV Q2M PRN Opioid Reversal Intake and Output 05/19/24 05/20/24 05/20/24 22:59 06:59 14:59 Other: # Voids 1 2 Weight 90.718 kg 05/20/24 09:06 05/19/24 15:48 Assessment and Plan Assessment: #1 syncope #2 left bundle branch block, no prior EKG for comparison Plan: From cardiology's perspective we will obtain a 2D echo with Doppler study. Thus far there has been no significant arrhythmia noted on telemetry. If the echocardiogram shows no significant abnormalities the patient may be discharged home. She will be discharged home with a 2-week event monitor. We will follow- up in the office with her in about 3 to 4 weeks.
[2024-05-20 10:15] LABS: Potassium 4.4 mmol/L (3.5-5.1)
--- NOTE | 2024-05-20 12:53 | CA ---
Transthoracic Echo Report Name: Viola Mace Age: 49 Gender: F : 1975 Exam Date: 05/20/2024 09:12 Exam Location: [facility] Ht (in): 64 Wt (lb): 200 Ordering Physician: Tomy Dunham MD Attending/Referring Phys: Stacker Tender Negra Faustin RDCS Procedure CPT: Indications: syncopal episodes Cardiac Hx: Technical Quality: Good Contrast 1: Total Dose (mL): Contrast 2: Total Dose (mL): MEASUREMENTS (Male / Female) Normal Values 2D ECHO LV Diastolic Diameter PLAX 4.4 cm 4.2 - 5.9 / 3.9 - 5.3 cm LV Systolic Diameter PLAX 3.1 cm IVS Diastolic Thickness 1.0 cm 0.6 - 1.0 / 0.6 - 0.9 cm LVPW Diastolic Thickness 1.0 cm 0.6 - 1.0 / 0.6 - 0.9 cm LV Relative Wall Thickness 0.4 RV Internal Dim ED PLAX 3.2 cm LA Systolic Diameter LX 3.4 cm 3.0 - 4.0 / 2.7 - 3.8 cm LV Diastolic Volume MOD BP 111.6 cm??? 67 - 155 / 56 - 104 cm??? LV Systolic Volume MOD BP 38.2 cm??? 22 - 58 / 19 - 49 cm??? LV Ejection Fraction MOD BP 65.8 % >= 55 % LV Cardiac Index MOD BP 2599.3 cm???/min???m??? LV Diastolic Volume MOD 4C 102.0 cm??? LV Systolic Volume MOD 4C 34.7 cm??? LV Ejection Fraction MOD 4C 66.0 % LV Cardiac Index MOD 4C 2382.6 cm???/min???m??? LV Diastolic Length 4C 7.8 cm LV Systolic Length 4C 6.2 cm LV Diastolic Volume MOD 2C 112.0 cm??? LV Systolic Volume MOD 2C 38.9 cm??? LV Ejection Fraction MOD 2C 65.3 % LV Cardiac Index MOD 2C 2587.9 cm???/min???m??? LV Diastolic Length 2C 8.6 cm LV Systolic Length 2C 7.1 cm LA Volume 45.0 cm??? 18 - 58 / 22 - 52 cm??? LA Volume Index 21.8 cm???/m??? 16 - 28 cm???/m??? M-MODE Aortic Root Diameter MM 3.3 cm AV Cusp Separation MM 2.2 cm DOPPLER AV Peak Velocity 142.5 cm/s AV Peak Gradient 8.1 mmHg MV Area PHT 4.5 cm??? Mitral E Point Velocity 88.6 cm/s Mitral A Point Velocity 101.6 cm/s Mitral E to A Ratio 0.9 MV Deceleration Time 169.0 ms TR Peak Velocity 174.2 cm/s TR Peak Gradient 12.1 mmHg Right Ventricular Systolic Press 17.1 mmHg FINDINGS Left Ventricle Left ventricular ejection fraction is estimated at 55-60 %. Left ventricular cavity size normal. Left ventricular wall thickness normal. Normal left ventricular wall motion. Right Ventricle Normal right ventricular size. Right ventricular systolic pressure within normal limits. Right Atrium Normal right atrial size. No right atrial thrombus or mass seen. Left Atrium Normal left atrial size. No left atrial thrombus or mass present. Mitral Valve Structurally normal mitral valve. Mild mitral regurgitation. Aortic Valve Trileaflet aortic valve. No aortic valve stenosis or regurgitation. Tricuspid Valve Structurally normal tricuspid valve. Mild tricuspid regurgitation. Pulmonic Valve Structurally normal pulmonic valve. Trace pulmonic regurgitation. Pericardium No pericardial or pleural effusion. Aorta Normal size aortic root and proximal ascending aorta. CONCLUSIONS 1. Normal left ventricle size and systolic function 2. Mild mitral and tricuspid regurgitation Previewed by: Dr. Amanda Horvath MD (Electronically Signed) Final Date: 20 May 2024 12:52
--- NOTE | 2024-05-20 14:30 | P.PN ---
Subjective History of Present Illness H&P Date: 05/19/24 Chief Complaint: syncope History of present illness; 49-year-old female with no significant PMH presents emergency department due to family members being concerned for her wellbeing. She states that dating back to January he had noted having episodes where she feels as though she passes out. She states these episodes last about 1 minute, the begin with her feeling warmth in and around her right ear which then extends to her left ear and sometimes throughout her torso. She notes that she has passed out on multiple occasions as a result of these episodes. She states that following her episodes of passing out she feels weakness that sometimes last the duration of the day. She states that over the past week this has become worse, and more frequent, stating that today she has had 3+ episodes thus far, and another episode in the ED. She notes that there is some association between when she gets up from a seated position, when she moves her head in certain directions (in particular towards the right), has her chin pulled down to her chest. While these do not always reproduce these episodes, she has noticed an association between them. She endorses some dizziness preceding these episodes and some palpitations, however denies any nausea or vomiting. Her , at the bedside, provides additional detail, noting that they have noticed her having episodes of bradycardia (HR in the 40s) and her heart rate during/right after these episodes being upwards of 170. Additionally, she notes that her period stopped occurring in January, and she has not had one since. At this time she notes that having increased anxiety secondary to these episodes, however has no acute complaints. Imaging: -CT brain showed no acute intracranial process -CT angiography of the head and neck showed no evidence of dissection of the cervical internal carotid arteries or vertebral arteries; no evidence of significant stenosis at the carotid bifurcation; no evidence of intracranial hig h-grade stenosis or intracranial aneurysm -EKG done in the ER showed atrial fibrillation with a heart rate of 76; QTc 449 Vitals: -Blood pressure 135/91, heart rate 92, respiratory rate 22, SpO2 99% on room air -Orthostatic pressures pending Patient admitted to internal medicine service REVIEW OF SYSTEMS: CONSTITUTIONAL: No fever, no malaise, no fatigue. HEENT: No recent visual problems or hearing problems. Denied any sore throat. CARDIOVASCULAR: No chest pain, orthopnea, PND, no palpitations, no syncope. PULMONARY: No shortness of breath, no cough, no hemoptysis. GASTROINTESTINAL: No diarrhea, no nausea, no vomiting, no abdominal pain. NEUROLOGICAL: No headaches, no weakness, no numbness. HEMATOLOGICAL: Denies any bleeding or petechiae. GENITOURINARY: Denies any burning micturition, frequency, or urgency. MUSCULOSKELETAL/RHEUMATOLOGICAL: Denies any joint pain, swelling, or any muscle pain. ENDOCRINE: Denies any polyuria or polydipsia. The rest of the 14-point review of systems is negative. PHYSICAL EXAMINATION: GENERAL: The patient is alert and oriented x3, not in any acute distress. Well developed, well nourished. HEENT: No scleral icterus. No conjunctival pallor. Normocephalic, atraumatic. CARDIOVASCULAR: S1 and S2 present. No murmurs, rubs, or gallops. PULMONARY: Chest is clear to auscultation, no wheezing or crackles. ABDOMEN: Soft, nontender, nondistended, normoactive bowel sounds. No palpable o rganomegaly. MUSCULOSKELETAL: No joint swelling or deformity. EXTREMITIES: No cyanosis, clubbing, or pedal edema. NEUROLOGICAL: Gross neurological examination did not reveal any focal deficits. 5/5 strength in bilateral upper and lower extremities. CN II-XII grossly intact SKIN: No rashes. Assessment and Plan Assessment and plan 41-year-old female without significant past medical history presents emergency room for further evaluation following a month-long history of apparent syncopal, or seizure-like, episodes. Discussed with the ED and patient is admitted to the internal medicine service for further evaluation. #Syncope vs seizure -CT brain showed no acute intracranial process -CT angiography of the head and neck showed no evidence of dissection of the cervical internal carotid arteries or vertebral arteries; no evidence of significant stenosis at the carotid bifurcation; no evidence of intracranial high-grade stenosis or intracranial aneurysm -EKG done in the ER showed atrial fibrillation with a heart rate of 76; QTc 449 -Second EKG currently pending -Patient maintained on normal saline 75 cc/h -Cardiology consulted for possible syncopal episode -Neurology consulted for possible seizure-like activity -Orthostatic blood pressures ordered -Echocardiogram pending -Cardiac monitoring -Supplemental oxygen as needed -EEG pending for tomorrow morning (05/20) -Trend troponins; <0.012 -> <0.012 -proBNP pending -TSH wnl 1.9 -Cortisol level pending -Urinalysis noncontributory; urine toxicology noncontributory 05/20 Patient seen and examined at bedside Reviewed CT of the brain independently, agree with no acute intracranial process Consult was placed to neurology as well as cardiology, appreciate recommendations Echocardiogram pending at this time Patient had seizures, story does not seem to be consistent with seizure-like activity Awaiting orthostatic blood pressure readings Patient is not having any urinary symptoms, reviewed urinalysis, low WBC count, mild leukocyte Estrace, not enough evidence to warrant antibiotics patient is also asymptomatic and not Continue close monitoring Fall precautions GI prohylaxis: Not indicated DVT prophylaxis: [place] Risk Score: 1 point (low risk for VTE, prophylaxis not indicated), mechanical DVT PPX with SCDs Dictation was produced using [employer] dictation software. please excuse any grammatical, word or spelling errors. Objective - Vital Signs Vital signs: Vital Signs Temp 97.9 F 05/20/24 14:21 Pulse 83 05/20/24 14:21 Resp 16 05/20/24 14:21 BP 131/87 05/20/24 14:21 Pulse Ox 94 L 05/20/24 14:21 FiO2 Intake & Output 05/19/24 05/20/24 05/20/24 18:59 06:59 18:59 Intake Total 236 Balance 236 Weight 90.718 kg 90.718 kg Intake: Oral 236 Other: # Voids 2 4 - Labs CBC & Chem 7: 05/20/24 09:06 05/20/24 09:06 Labs: Abnormal Lab Results - Last 24 Hours (Table) 05/19/24 05/19/24 05/19/24 Range/Units 15:34 15:48 15:48 Chloride (98-107) mmol/L Glucose 139 H (74-99) mg/dL POC Glucose (mg/dL) 125 H (70-110) mg/dL Cortisol 29.4 H (3.1-22.4) UG/DL Ur Leukocyte Esterase (Negative) Urine WBC (0-5) /hpf 05/19/24 05/20/24 Range/Units 16:28 09:06 Chloride 108 H (98-107) mmol/L Glucose 138 H (74-99) mg/dL POC Glucose (mg/dL) (70-110) mg/dL Cortisol (3.1-22.4) UG/DL Ur Leukocyte Esterase Moderate H (Negative) Urine WBC 14 H (0-5) /hpf
[2024-05-20] MEDS: ALPRAZolam 0.25 MG TAB PO PRN (17:34)
--- NOTE | 2024-05-20 21:32 | EEG ---
ELECTROENCEPHALOGRAM REPORT CURRENT MEDICATIONS: 1. Morphine. 2. Naloxone. 3. Zofran. CHARACTERIZATION OF RECORD: This 23-minute electroencephalogram was characterized by background rhythm of 11 to 12 Hertz beta rhythm, which was occipitally dominant, which was reactive to eye opening and eye closure. Photic stimulation was performed and resulted in a driving response from 6 to 30 Hertz. No hyperventilation was performed. The second portion of the electroencephalogram was characterized by features of late stage 1 to early stage 2 sleep including vertex waves as well as sleep spindles. Throughout this electroencephalogram, there is no evidence of focal slowing, focal spikes, sharp waves, or epileptiform discharges. CONCLUSION: This is a normal 23-minute electroencephalogram. MMODL / IJN: [id number] /
--- NOTE | 2024-05-21 08:59 | P.PN ---
Subjective Progress Note Date: 05/21/24 Principal diagnosis: syncopal episodes- possibly vasovagal Ms. Matt Bennett is a 49-year-old right-handed female with past medical history significant only for syncopal events versus seizures. She was admitted to [facility] on May 19 complaining of several episodes of lightheadedness as well as some loss of consciousness. She does not think she is unconscious for a long time, and denies tongue biting or bowel bladder incontinence with these episodes. She received an electrocardiogram in the emergency room showing atrial fibrillation with rate of 76 bpm. However she does note that symptoms tend to occur when she is arising from bending over. She also notes episodes which may occur when she turns her head to the right, but denies episodes occurring when she raises her arms above her head. She did undergo a CT scan of the brain as well as CT angiogram which were both negative. She was tachycardic in the emergency room to 170 and notes that she has been diagnosed with some low blood sugars with these episodes in the past but denies diabetes. Routine electroencephalogram was performed on May 20 Which revealed 11 to 12 Hz background rhythm which was reactive with some photic driving but no epileptiform discharges. Orthostatic vital signs were ordered as well. On evaluation May 21, 2024, the patient states that her orthostatic vital signs were performed and they did not note a decline in her blood pressure lying sitting or standing. However I could not find the orthostatic vital sign results in the in the chart. Again her electroencephalogram was performed and did not result in any epileptiform discharges. She notes that she had another similar event last night where she got hot and flushed and very anxious but did not pass out. It is believed her episodes may be related to vasovagal events. She is concerned that she may need antianxiety medicine or a referral on discharge for anxiety. Examination did not reveal any focal neurologic deficits at this time. Conclusion: Ms. Krista Bennett is a 49-year-old right-handed female with past medical history concerning for possible syncopal events versus seizures. Her electroencephalogram did not reveal any evidence of epileptiform activity, and her history is most consistent with syncopal and presyncopal events, most likely secondary to vasovagal attacks. 1. I will not choose to prescribe any antiepileptic medications at this time, as I do not believe her events represent epileptic seizures. 2. I would recommend consideration of vasovagal events in the setting of anxiety to the primary team and we will leave management with medications and/or referral to them. 3. Neurology will continue to follow the patient on an intermittent basis from now on. However she is cleared to be discharged per neurology if so desired. Objective - Vital Signs Vital signs: Vital Signs Temp 97.8 F 05/21/24 07:00 Pulse 42 L 05/21/24 07:00 Resp 16 05/21/24 07:00 BP 118/79 05/21/24 07:00 Pulse Ox 97 05/21/24 07:00 FiO2 Intake & Output 05/20/24 05/21/24 05/21/24 18:59 06:59 18:59 Intake Total 236 Balance 236 Intake: Oral 236 Other: # Voids 4 3 - Labs CBC & Chem 7: 05/20/24 09:06 05/20/24 09:06 Labs: Abnormal Lab Results - Last 24 Hours (Table) 05/20/24 Range/Units 09:06 Chloride 108 H (98-107) mmol/L Glucose 138 H (74-99) mg/dL
--- NOTE | 2024-05-21 10:56 | P.PN ---
Subjective Progress Note Date: 05/21/24 Principal diagnosis: Syncope The patient was seen by Neurology and Cardiology review of telemetry strip with evidence of pause Objective - Vital Signs Vital signs: Vital Signs Temp 97.8 F 05/21/24 07:00 Pulse 75 05/21/24 08:00 Resp 16 05/21/24 07:00 BP 118/79 05/21/24 07:00 Pulse Ox 97 05/21/24 07:00 FiO2 Intake & Output 05/20/24 05/21/24 05/21/24 18:59 06:59 18:59 Intake Total 236 Balance 236 Intake: Oral 236 Other: # Voids 4 3 - Constitutional General appearance: Present: cooperative - Respiratory Respiratory: bilateral: CTA - Cardiovascular Rhythm: regular - Psychiatric Psychiatric: Present: appropriate affect - Labs CBC & Chem 7: 05/20/24 09:06 05/20/24 09:06 Assessment and Plan (1) Syncope Narrative/Plan: Discussed with Cardiology provider review of the strip showed a 9 s pause. The patient was asymptomatic. Plan for evaluation for PPM placement. Will await futher recs discussed with patient and family at bedside Current Visit: Yes Status: Acute Code(s): R55 - SYNCOPE AND COLLAPSE SNOMED Code(s): 399669864 (2) Seizure Narrative/Plan: Seen by Neurology and seizure not likely they signed off Current Visit: Yes Status: Ruled-out Code(s): R56.9 - UNSPECIFIED CONVULSIONS SNOMED Code(s): 43378578
[2024-05-21] MEDS ORDERED: SODIUM CHLORIDE 0.9% 1,000 ML IV SCH (13:00)
[2024-05-21 13:28] LABS: Prothrombin Time 11.2 sec (10.0-12.5)
[2024-05-21 13:31] LABS: African American GFR (CKD) >90 (>60 ml/min/1.73 sqM); Anion Gap 8 mmol/L; Blood Urea Nitrogen 10 mg/dL (7-17); Carbon Dioxide 24 mmol/L (22-30); Chloride 107 mmol/L (98-107); Glucose 95 mg/dL (74-99); Non-African American GFR(CKD) >90 (>60 ml/min/1.73 sqM); Potassium 4.2 mmol/L (3.5-5.1); Sodium 139 mmol/L (137-145)
--- NOTE | 2024-05-21 13:46 | P.PN ---
Subjective Progress Note Date: 05/21/24 This is a pleasant 49-year-old female patient with no significant medical history. Presented to the hospital after having a syncopal episode at home. She is apparently been getting these episodes since January. She states she feels her ear warming up and then becomes somewhat disoriented and has had a co uple very brief syncopal episodes lasting only seconds. She has had no clear evidence of seizure-like activity and no loss of bowel or bladder control. She has no history of prior cardiac workup. She is a non-smoker, nondrinker and stopped drinking caffeine about 2 weeks ago. EKG on presentation showed sinus mechanism with first-degree AV block and left bundle branch block with occasional junctional beats. No prior EKG for comparison. Troponins have been negative x 3. Renal function is normal. Labs are essentially unremarkable except for glucose of 139 and cortisol 29.4. Neurology has also been consulted. Vital signs have been stable. There has been no evidence of significant arrh ythmia on telemetry. Upon examination the patient is resting comfortably in bed with family at bedside. She is overall feeling well at this time. She denies any chest discomfort. She does have occasional palpitations following these episodes that she relates to anxiety. She feels somewhat short of breath during these episodes she again attributes to anxiety. She is relatively active and has been using her recumbent bike at home without any exertional chest discomfort or shortness of breath. She has no edema, orthopnea or PND. 05/21/2024 Patient was seen and examined sitting up in bed. Overall this morning she is feeling well. She does remember having an episode yesterday afternoon at about 3:20 at which time was told by nursing staff to have no significant abnormalities in her vital signs. Upon review of alerts on telemetry it appears patient had episode of complete heart block at that time with heart rate around 40. Following that at about 5:18 PM yesterday she had another episode of complete heart block with a long pause of 9.5 seconds. She does not recall having symptoms at this time. She did receive a call from the event monitoring [employer] in regards to an episode that they saw however at that time it appears that vital signs were checked by nursing staff and were stable. Nursing staff was not alerted by telemetry nor was cardiology notified of this event. She did have an echocardiogram with Doppler study done yesterday and this showed a normal LV systolic function with mild MR and mild TR. Objective - Vital Signs Vital signs: Vital Signs Temp 97.8 F 05/21/24 07:00 Pulse 75 05/21/24 08:00 Resp 16 05/21/24 07:00 BP 118/79 05/21/24 07:00 Pulse Ox 97 05/21/24 07:00 FiO2 Intake & Output 05/20/24 05/21/24 05/21/24 18:59 06:59 18:59 Intake Total 236 Balance 236 Intake: Oral 236 Other: # Voids 4 3 - Exam PHYSICAL EXAMINATION: This is a 49-year-old male in no apparent distress at the time of my examination. VITAL SIGNS: Reviewed. HEENT: Head is atraumatic, normocephalic. Pupils are equal, round. Sclerae anicteric. Conjunctivae are clear. Mucous membranes of the mouth are moist. Neck is supple. There is no elevated jugular venous pressure. No carotid bruit is heard. CHEST EXAMINATION: Clear to auscultation bilaterally. No wheezes rales or rhonchi. Respirations even and nonlabored. HEART EXAMINATION: Heart regular, positive S1 and S2. No S3. No S4. No clicks, rubs or murmurs. ABDOMEN: Soft, nontender. Bowel sounds are heard. No organomegaly noted. EXTREMITIES: 2+ peripheral pulses with no evidence of peripheral edema and no calf tenderness noted. NEUROLOGIC EXAMINATION: Patient is awake, alert and oriented x3. - Labs CBC & Chem 7: 05/20/24 09:06 05/21/24 12:53 Assessment and Plan Assessment: #1 Complete heart block with long pauses #2 Syncope, likely secondary to above #2 left bundle branch block, no prior EKG for comparison Plan: From cardiology's perspective patient's case was discussed with Dr. Hunter. She will undergo permanent pacemaker implantation tomorrow. N.p.o. after midnight. Further recommendations to follow. [employer] note has been reviewed, I agree with a documented findings and plan of care. Patient was seen and examined.
[2024-05-21] MEDS: SODIUM CHLORIDE 0.9% 1,000 ML IV SCH (17:25)
--- NOTE | 2024-05-22 11:00 | P.PN ---
Subjective History of Present Illness H&P Date: 05/19/24 Chief Complaint: syncope History of present illness; 49-year-old female with no significant PMH presents emergency department due to family members being concerned for her wellbeing. She states that dating back to January he had noted having episodes where she feels as though she passes out. She states these episodes last about 1 minute, the begin with her feeling warmth in and around her right ear which then extends to her left ear and sometimes throughout her torso. She notes that she has passed out on multiple occasions as a result of these episodes. She states that following her episodes of passing out she feels weakness that sometimes last the duration of the day. She states that over the past week this has become worse, and more frequent, stating that today she has had 3+ episodes thus far, and another episode in the ED. She notes that there is some association between when she gets up from a seated position, when she moves her head in certain directions (in particular towards the right), has her chin pulled down to her chest. While these do not always reproduce these episodes, she has noticed an association between them. She endorses some dizziness preceding these episodes and some palpitations, however denies any nausea or vomiting. Her , at the bedside, provides additional detail, noting that they have noticed her having episodes of bradycardia (HR in the 40s) and her heart rate during/right after these episodes being upwards of 170. Additionally, she notes that her period stopped occurring in January, and she has not had one since. At this time she notes that having increased anxiety secondary to these episodes, however has no acute complaints. Imaging: -CT brain showed no acute intracranial process -CT angiography of the head and neck showed no evidence of dissection of the cervical internal carotid arteries or vertebral arteries; no evidence of significant stenosis at the carotid bifurcation; no evidence of intracranial hig h-grade stenosis or intracranial aneurysm -EKG done in the ER showed atrial fibrillation with a heart rate of 76; QTc 449 Vitals: -Blood pressure 135/91, heart rate 92, respiratory rate 22, SpO2 99% on room air -Orthostatic pressures pending Patient admitted to internal medicine service REVIEW OF SYSTEMS: CONSTITUTIONAL: No fever, no malaise, no fatigue. HEENT: No recent visual problems or hearing problems. Denied any sore throat. CARDIOVASCULAR: No chest pain, orthopnea, PND, no palpitations, no syncope. PULMONARY: No shortness of breath, no cough, no hemoptysis. GASTROINTESTINAL: No diarrhea, no nausea, no vomiting, no abdominal pain. NEUROLOGICAL: No headaches, no weakness, no numbness. HEMATOLOGICAL: Denies any bleeding or petechiae. GENITOURINARY: Denies any burning micturition, frequency, or urgency. MUSCULOSKELETAL/RHEUMATOLOGICAL: Denies any joint pain, swelling, or any muscle pain. ENDOCRINE: Denies any polyuria or polydipsia. The rest of the 14-point review of systems is negative. PHYSICAL EXAMINATION: GENERAL: The patient is alert and oriented x3, not in any acute distress. Well developed, well nourished. HEENT: No scleral icterus. No conjunctival pallor. Normocephalic, atraumatic. CARDIOVASCULAR: S1 and S2 present. No murmurs, rubs, or gallops. PULMONARY: Chest is clear to auscultation, no wheezing or crackles. ABDOMEN: Soft, nontender, nondistended, normoactive bowel sounds. No palpable o rganomegaly. MUSCULOSKELETAL: No joint swelling or deformity. EXTREMITIES: No cyanosis, clubbing, or pedal edema. NEUROLOGICAL: Gross neurological examination did not reveal any focal deficits. 5/5 strength in bilateral upper and lower extremities. CN II-XII grossly intact SKIN: No rashes. Assessment and Plan Assessment and plan 41-year-old female without significant past medical history presents emergency room for further evaluation following a month-long history of apparent syncopal, or seizure-like, episodes. Discussed with the ED and patient is admitted to the internal medicine service for further evaluation. #Syncope vs seizure -CT brain showed no acute intracranial process -CT angiography of the head and neck showed no evidence of dissection of the cervical internal carotid arteries or vertebral arteries; no evidence of significant stenosis at the carotid bifurcation; no evidence of intracranial high-grade stenosis or intracranial aneurysm -EKG done in the ER showed atrial fibrillation with a heart rate of 76; QTc 449 -Second EKG currently pending -Patient maintained on normal saline 75 cc/h -Cardiology consulted for possible syncopal episode -Neurology consulted for possible seizure-like activity -Orthostatic blood pressures ordered -Echocardiogram pending -Cardiac monitoring -Supplemental oxygen as needed -EEG pending for tomorrow morning (05/20) -Trend troponins; <0.012 -> <0.012 -proBNP pending -TSH wnl 1.9 -Cortisol level pending -Urinalysis noncontributory; urine toxicology noncontributory 05/20 Patient seen and examined at bedside Reviewed CT of the brain independently, agree with no acute intracranial process Consult was placed to neurology as well as cardiology, appreciate recommendations Echocardiogram pending at this time Patient had seizures, story does not seem to be consistent with seizure-like activity Awaiting orthostatic blood pressure readings Patient is not having any urinary symptoms, reviewed urinalysis, low WBC count, mild leukocyte Estrace, not enough evidence to warrant antibiotics patient is also asymptomatic and not Continue close monitoring Fall precautions 05/22 Patient seen and examined at bedside Over last 24 hours was picked up on cardiac telemetry of the patient had a complete AV block with heart rate into the 40s She states she also had an episode of dizziness earlier this morning as well Plan is not for a permanent pacemaker with cardiology Keep patient n.p.o., plan for PPM today Avoid AV wendy blocking agents Continue remaining cardiac medications per recommendations of cards Neurology following, recommendations reviewed GI prohylaxis: Not indicated DVT prophylaxis: [place] Risk Score: 1 point (low risk for VTE, prophylaxis not indicated), mechanical DVT PPX with SCDs Dictation was produced using [employer] dictation software. please excuse any grammatical, word or spelling errors. Objective - Vital Signs Vital signs: Vital Signs Temp 98.5 F 05/22/24 07:00 Pulse 68 05/22/24 07:00 Resp 15 05/22/24 07:00 BP 109/72 05/22/24 07:00 Pulse Ox 98 05/22/24 07:00 FiO2 Intake & Output 05/21/24 05/22/24 05/22/24 18:59 06:59 18:59 Intake Total 118 480 0 Balance 118 480 0 Intake: Oral 118 480 0 Other: # Voids 2 2 - Labs CBC & Chem 7: 05/20/24 09:06 05/21/24 12:53
[2024-05-22 11:34] LABS: Glucose,Whole Blood 82 mg/dL (70-110)
[2024-05-22] MEDS: MIDAZOLAM 2 MG/2 ML VIAL IV ONE (12:13)
--- NOTE | 2024-05-22 13:15 | P.PN ---
Subjective Progress Note Date: 05/22/24 PROGRESS NOTE The patient is a 49-year-old female who presented with symptoms of syncope since January. She had evidence of complete AV block on the monitor with underlying left bundle branch block. She is scheduled to undergo permanent pacemaker implantation today. She is feeling well this morning. She denies any chest discomfort, dizziness or palpitations. Medications: Xanax on a as needed basis PHYSICAL EXAMINATION: Blood pressure 139/80 heart rate 70 LUNGS: Clear to auscultation HEART: Regular rate and rhythm, S1, S2. No S3. Systolic ejection lic murmur ABDOMEN: Soft, nontender, no organomegaly EXTREMETIES: No edema LAB: Yesterday her potassium was 4.2, BUN 10 and creatinine 0.67 IMPRESSION: 1. Syncope with episodes of complete heart block 2. Left bundle branch block PLAN: 1. Proceed with permanent pacemaker implantation today 2. Depending on her progress further recommendations will be made Objective - Vital Signs Vital signs: Vital Signs Temp 98.5 F 05/22/24 07:00 Pulse 77 05/22/24 12:14 Resp 16 05/22/24 12:14 BP 139/84 05/22/24 12:14 Pulse Ox 97 05/22/24 12:14 FiO2 Intake & Output 05/21/24 05/22/24 05/22/24 18:59 06:59 18:59 Intake Total 118 480 0 Balance 118 480 0 Intake: Oral 118 480 0 Other: # Voids 2 2 - Labs CBC & Chem 7: 05/20/24 09:06 05/21/24 12:53
[2024-05-22] MEDS ORDERED: MIDAZOLAM 2 MG/2 ML VIAL ONE (13:32)
[2024-05-22] MEDS ORDERED: fentaNYL (PF) 50 MCG/ML 2 ML AMP ONE (13:32)
[2024-05-22] MEDS ORDERED: PROPOFOL 10 MG/ML 20 ML VIAL IV ONE (13:32)
[2024-05-22] MEDS: ROPIVACAINE 5 MG/ML 30 ML VIAL MISCELLANE ONE (14:09)
[2024-05-22] MEDS: LIDOCAINE 1% INJ 10MG/ML (20 ML MDV) SQ ONE (14:09)
--- NOTE | 2024-05-22 16:21 | P.PRLE ---
RE: Viola Pimentel Dear Elgin Bennett, 49-year-old female was admitted to the hospital with episodes of syncope. Her twelve-lead EKG on admission showed evidence of AV block at a sinus rate of 50 beats a minute with underlying left bundle branch block. She had documented pauses and an episode of syncope in the hospital. She has had recurrent episodes of syncope for the last 6 months but these were brief. Her LV function was normal on 2D echo. She underwent placement of a biventricular pacemaker successfully with LV pacing to avoid development of RV pacing induced cardiomyopathy in the future. In addition instead of the standard RV pacing lead, an ICD lead was placed along with biventricular pacing in case diagnosis of sarcoidosis/chronic myocarditis is made in the future. She will follow-up with you and Dr. Horvath If you have any questions please do not hesitate to give me a call Sincerely Ashish Hunter
--- NOTE | 2024-05-22 16:27 | P.EPCON ---
Electrophysiology Consult - EP Consult Electrophysiology Consult: Twelve-lead EKG interpretation The twelve-lead EKG from 05/19/2024 at 16: 08 shows sinus mechanism No evidence for atrial fibrillation Underlying left bundle branch block Evidence of AV node Wenckebach block In addition there is evidence for advanced AV block The follow-up twelve-lead EKG on 05/20/2024 shows sinus mechanism with one-to-one conduction with a prolonged VA interval and an underlying left bundle branch block typical Lamont pattern Patient presented with syncope, recurrent in nature Plan Dual-chamber biventricular pacemaker at this time I will implant an RV ICD lead in place of a standard pacing lead as her u nderlying condition may represent the early phase of chronic myocarditis/sarcoidosis
[2024-05-22] MEDS: ceFAZolin 1,000 MG in SODIUM CHLORIDE 0.9% IRRIG BTL 250 ML IRRIGATION ONE (16:46)
[2024-05-22] MEDS: ACETAMINOPHEN IV (For NPO) 1,000 MG in EMPTY BAG 1 BAG IVPB ONE (16:55)
--- NOTE | 2024-05-22 17:06 | P.EPPROC ---
- EP Procedure Note Electrophysiology Procedure Note: Diagnosis 49-year-old female with advanced conduction system disease Recurrent syncope, documented paroxysmal AV block on telemetry and 1 episode with loss of consciousness while in bed Prolonged AL interval, left bundle branch block pattern with a QRS width = 48 ms Spontaneous AV block noted on twelve-lead EKG No evidence for atrial fibrillation (ECG showed sinus rhythm) Normal LV function Procedure: Biventricular pacemaker implantation for management of recurrent syncope secondary to paroxysmal AV block with underlying left bundle branch block and progression to cardiomyopathy given the conduction system abnormalities Result: Successful biventricular pacemaker implantation, [employer]ron Quadra allure MP model #3562 [employer]ER-P Atrial lead: Screwed in the right atrial appendage: P waves greater than 5 mV, pacing impedance 860 ohms and pacing threshold 0.5 V at 0.5 RV ICD lead: Screwed in the low RV septum. Pacing threshold 0.5 V at 0.5 ms, R waves greater than 12 mV and pacing pins 610 ohms Left ventricular lead: LV threshold 0.75 V at 0.5 ms, M3-P4, 10 V test negative, pacing impedance 740 ohms Plan Workup for myocarditis/possible sarcoidosis Procedure details: Patient was brought to the EP lab in a fasting state. Written informed consent was obtained prior to the procedure. Options, pros and cons, benefits and risks and complications discussed with patient in detail prior to the procedure (shared decision making) previously. Importance of continuing medical treatment emphasized previously. Alternatives discussed previously. Left upper extremity venogram performed. 15 mL IV dye injected in the left arm. Patent axillary/subclavian vein The left pectoral area was prepped and draped as a protocol. IV antibiotics administered 1% lidocaine was used for local anesthesia. A 4 cm incision was made parallel to the deltopectoral groove, about 1.5 cm medial to it. The incision was carried down to the level of the pectoralis muscle and the subfascial pocket was made. Hemostasis was assured. The axillary vein access was obtained. Appropriately sized into to see sheaths were placed. The atrial lead was first placed in the right ventricle for temporary pacing while the coronary sinus lead was being placed. This was later removed from the right ventricle and placed in the right atrial appendage and screwed in successfully ICD lead implanted in the right ventricle and screwed in. ICD lead tested for threshold, sensing, impedances and tested with high output pacing for diaphragmatic stimulation. Negative diaphragmatic stimulation And ICD lead was chosen in place of standard pacing lead in view of the possibility of chronic myocarditis/possible sarcoidosis as the cause of her syncope with AV block /bundle branch block. Patient to be evaluated for this in the future. No evidence for VT so far. Atrial lead placed in the right atrial appendage and tested for threshold, sensing, impedance, and tested with high output pacing. Phrenic nerve stimulation negative Coronary sinus/left ventricular epicardial lead placement: Anterolateral vein excellent position with basal to mid pacing from the proximal poles Leads secured to the underlying pectoral muscle after removing sheaths . Pocket irrigated with antibiotic solution. Antibiotic pouch placed Leads connected to the biventricular pacemaker generator. Wound closed in 3 layers and dressed per protocol. Antibiotic pouch placed. DF 1 Pin and secured, pacemaker generator secured. AV delay 150 ms, LV offset 20 ms, DDD 50 bpm Patient tolerated the procedure well without any acute complications. See scanned device report in EMR for lead details
[2024-05-22] MEDS: ACETAMINOPHEN TAB 325 MG TAB PO PRN (21:08)
[2024-05-23 07:25] VITALS: RESP 16
--- NOTE | 2024-05-23 07:47 | XR ---
2 view chest HISTORY: Lead placement check COMPARISON: None TECHNIQUE: PA and lateral views chest obtained. FINDINGS: There is an AICD device which appears to be in satisfactory position. The lungs are clear of consolidative, interstitial or masslike opacity. There is no pleural effusion, pleural thickening or pneumothorax. The heart size is within upper limits of normal. There is no pulmonary vascular congestion. The osseous structures and soft tissues of the thorax are intact. IMPRESSION: Satisfactory AICD device placement. Borderline cardiac enlargement. No acute cardiopulmonary disease. . [facility], , 05/23/2024 7:45 AM
[2024-05-23 14:09] VITALS: BP 109/75; PULSE 91; TEMP 98.2
--- NOTE | 2024-05-23 14:50 | P.PN ---
Subjective Progress Note Date: 05/23/24 PROGRESS NOTE The patient is a 49-year-old female who presented with symptoms of syncope since January. She had evidence of complete AV block on the monitor with underlying left bundle branch block. She is scheduled to undergo permanent pacemaker implantation today. She is feeling well this morning. She denies any chest discomfort, dizziness or palpitations. May 23: The patient underwent biventricular pacemaker placement with an RV ICD lead. She is feeling well this morning. She denies any dizziness palpitations or syncope. She is paced and feels better overall. Her energy is better. Her chest x-ray shows no evidence of pneumothorax. Hemodynamically she is stable. Medications: Xanax on a as needed basis PHYSICAL EXAMINATION: Blood pressure 120/80 heart rate 90 LUNGS: Clear to auscultation, pacemaker site clean HEART: Regular rate and rhythm, S1, S2. No S3. Systolic ejection murmur ABDOMEN: Soft, nontender, no organomegaly EXTREMETIES: No edema IMPRESSION: 1. Syncope with episodes of complete heart block 2. Left bundle branch block 3 status post permanent pacemaker implantation, biventricular PLAN: 1. Discharge home today 2. Follow-up as an outpatient Objective - Vital Signs Vital signs: Vital Signs Temp 98.2 F 05/23/24 13:45 Pulse 91 05/23/24 13:45 Resp 16 05/23/24 13:45 BP 109/75 05/23/24 13:45 Pulse Ox 98 05/23/24 13:45 FiO2 Intake & Output 05/22/24 05/23/24 05/23/24 18:59 06:59 18:59 Intake Total 168 360 444 Balance 168 360 444 Intake: IV 50 Oral 118 360 444 Other: Voiding Method Toilet # Voids 2 3 - Labs CBC & Chem 7: 05/20/24 09:06 05/21/24 12:53
--- NOTE | 2024-05-23 15:00 | P.DS ---
Providers Date of admission: 05/19/24 18:13 Expected date of discharge: 05/23/24 Attending physician: Lucila Walter MD Consults: 05/19/24 18:12 Consult Physician Routine Consulting Provider: Amanda Horvath Consult Reason/Comments: syncope Do you want consulting provider notified?: Yes Consult Physician Routine Consulting Provider: Mika Barksdale Consult Reason/Comments: seizure Do you want consulting provider notified?: Yes Primary care physician: El[place] Nation Hospital Course: Discharge Diagnosis: Complete heart block status post permanent pacemaker implantation Syncope Hospital Course: 49-year-old female with no known past medical history admitted with recurrent syncopal episodes. Found to have third-degree heart block. Underwent permanent pacemaker implantation on 05/22. Device interrogated and functioning well. Determined stable for discharge. Follow-up: device clinic in 5 days, Dr. Horvath in 3 weeks, Dr. Prabhakar in 1 week. Off work X 1 week until seen by cardiology. Patient seen and examined at bedside. No complaints today. Pain well- controlled. No lightheadedness, dizziness, chest pain, shortness of breath. No nausea. Vital signs reviewed and stable. General: Nontoxic, no distress, appears at stated age Cardiovascular: S1S2 reg, no murmur, positive posterior tibial pulse bilateral, left arm in sling, dressing in place over left chest without soaked through Lungs: CTA bilateral, no rhonchi, no rales, no accessory muscle use Neuro: CN II-XI grossly intact, no focal neuro deficits Psych: Alert, oriented, appropriate affect A total of 25 minutes of time were spent preparing this complex discharge summary. Patient was discharged on 05/23/24. This dictation was prepared using [employer] voice recognition software. Though every attempt is made to correct errors during dictation some may still exist. Patient Condition at Discharge: Stable Plan - Discharge Summary New Discharge Prescriptions: No Action No Known Home Medications Discharge Medication List No Known Home Medications 05/19/24 [History] Follow up Appointment(s)/Referral(s): Amanda Horvath MD [STAFF PHYSICIAN] - 1 Week El[place] Nation DO [Primary Care Provider] - 1-2 days Activity/Diet/Wound Care/Special Instructions: PATIENT EDUCATION MATERIAL Instructions following a heart rhythm device implant. 1. Keep dressing DRY for 5 DAYS. You may cover the area with Saran or Cling Wrap, prior to a shower. 2. The dressing will be removed in the Device Clinic at [facility]. Absorbable sutures were used to close the wound. 3. Avoid raising the left arm above the shoulder level. 4 week restriction 4. Avoid arm movements, like backscratching, rubbing the head, or pulling on a cord. 4 weeks restriction 5. Gentle range of motion movements of the shoulder, closest to the incision should be performed to avoid a frozen shoulder. (Pendulum exercises of the shoulder) 6. The opposite arm may be used freely. 7. Avoid driving for 7 days. 8. Avoid activities such as golfing, swimming, weed whacking, lifting more than 10 pounds weight, bowling, gymnastics and weight training/lifting. (6 weeks restriction) 9. Activities such as wood chopping with an axe, pull-ups in the gymnasium, power lifting, arc-welding, being close to home induction cooktops will always be a problem. 10. Arm sling is only a reminder not to raise the arm above the head. You do not need to keep the arm completely immobilized. Your free to move the arm and use it and for normal activities. In case of any problems, please call [facility], @ [phone], Attention: Device Clinic Device clinic follow-up in 5 days Follow-up with primary aircraft mechanic armament within 1 month Discharge/Stand Alone Forms: Work/Release Restrictions Form Discharge Disposition: HOME SELF-CARE
== END 2024-05-23 15:43 | disposition home or self-care (01) | DRG 243 ==
LOC: EC 15:27 → OBSVTOIN 18:13 → 6NMEDSUR 18:13
PROVIDERS: ADMIT Internal Medicine; ATTEND Internal Medicine
PROC: 02HK3JZ Insertion of Pacemaker Lead into Right Ventricle, Percutaneous Approach (ICD-10-PCS; 2024-05-22)
PROC: 02HL3JZ Insertion of Pacemaker Lead into Left Ventricle, Percutaneous Approach (ICD-10-PCS; 2024-05-22)
PROC: 0JH637Z Insertion of Cardiac Resynchronization Pacemaker Pulse Generator into Chest Subcutaneous Tissue and Fascia, Percutaneous Approach (ICD-10-PCS; principal; 2024-05-22 07:30)
PROC: 02H63JZ Insertion of Pacemaker Lead into Right Atrium, Percutaneous Approach (ICD-10-PCS; 2024-05-22 07:30)
DX: I44.2 Atrioventricular block, complete (principal); I42.9 Cardiomyopathy, unspecified; R56.9 Unspecified convulsions; I48.91 Unspecified atrial fibrillation; F06.4 Anxiety disorder due to known physiological condition
CPT/HCPCS: 33208; 33225; 36415; 70450; 70496; 70498; 71046; 80048; 80053; 80143; 80179; 80306; 81001; 81025; 82533; 83735; 83880; 84100; 84443; 84484; 85025; 85379; 85610; 85730; 86850; 86900; 86901; 93005; 93270; 93306; 95816; 96360; 96361; 99285